=== PATIENT | male | born 1940 | race Two or more races ===

== ENCOUNTER → 2020-04-22 | Outpatient (CLI) | payer OTHER | END | disposition home or self-care (01) | LOC: LAB 16:28 | PROVIDERS: ATTEND Physician Assistant | DX: Z20.828 Contact with and (suspected) exposure to other viral communicable diseases (principal) | CPT/HCPCS: 87635 ==

== ENCOUNTER → 2020-06-17 | Outpatient (CLI) | payer OTHER | END | disposition home or self-care (01) | LOC: LAB 14:50 | PROVIDERS: ATTEND Nurse Practitioner Family | DX: Z20.828 Contact with and (suspected) exposure to other viral communicable diseases (principal) | CPT/HCPCS: C9803; U0003 ==

== ENCOUNTER 2020-08-12 10:40 | Emergency (ER) | payer MEDICARE, OTHER ==
[~2020-08-12] VITALS: Ht 172.7 cm; Wt 81.2 kg
[2020-08-12 10:53] VITALS: BP 137/62
== END 2020-08-12 12:13 | disposition home or self-care (01) ==
LOC: EEVIPCON 10:40 → ER 10:40
DX: U07.1 COVID-19 (principal); I25.10 Atherosclerotic heart disease of native coronary artery without angina pectoris; E11.9 Type 2 diabetes mellitus without complications; I10 Essential (primary) hypertension; Z98.61 Coronary angioplasty status
CPT/HCPCS: 71045

== ENCOUNTER → 2020-08-12 | Outpatient (CLI) | payer OTHER | END | disposition home or self-care (01) | LOC: LAB 09:32 | PROVIDERS: ATTEND Internal Medicine | DX: U07.1 COVID-19 (principal) | CPT/HCPCS: 36415; 87426; C9803; U0003 ==

== ENCOUNTER 2021-04-28 07:19 | Emergency (ER) | payer MEDICARE, OTHER ==
[~2021-04-28] VITALS: Ht 172.7 cm; Wt 83.5 kg
[2021-04-28 07:29] VITALS: BP 138/57
== END 2021-04-28 13:32 | disposition home or self-care (01) ==
LOC: ER 07:19 → EEVIPCON 07:19 → ER 13:31
DX: Z00.00 Encounter for general adult medical examination without abnormal findings (principal); I10 Essential (primary) hypertension; E11.9 Type 2 diabetes mellitus without complications; I25.10 Atherosclerotic heart disease of native coronary artery without angina pectoris; Z90.49 Acquired absence of other specified parts of digestive tract; Z20.822 Contact with and (suspected) exposure to COVID-19
CPT/HCPCS: 99283; C9803; U0003

== ENCOUNTER 2022-04-03 13:43 | Emergency (ER) | payer MEDICARE, OTHER | END 2022-04-03 18:47 | disposition left against medical advice (07) | LOC: ER 13:43 → EEVIPCON 13:43 → ER 18:47 | DX: Z02.79 Encounter for issue of other medical certificate (principal); Z53.21 Procedure and treatment not carried out due to patient leaving prior to being seen by health care provider; Z20.822 Contact with and (suspected) exposure to COVID-19 | CPT/HCPCS: C9803; U0003 ==

== ENCOUNTER → 2022-10-02 | Emergency (ER) | payer MEDICARE, OTHER | END | disposition left against medical advice (07) | LOC: ER 14:44 | DX: Z20.822 Contact with and (suspected) exposure to COVID-19 (principal); Z53.21 Procedure and treatment not carried out due to patient leaving prior to being seen by health care provider | CPT/HCPCS: 36415; 87426 ==

== ENCOUNTER 2022-11-09 07:11 | Emergency (ER) | payer MEDICARE, OTHER ==
[~2022-11-09] VITALS: Ht 172.7 cm; Wt 78.0 kg
[2022-11-09 07:30] VITALS: BP 123/62
== END 2022-11-09 15:05 | disposition home or self-care (01) ==
LOC: ER 07:11 → EEVIPCON 07:11 → ER 14:45
DX: Z11.52 Encounter for screening for COVID-19 (principal); I10 Essential (primary) hypertension; E11.9 Type 2 diabetes mellitus without complications; I25.10 Atherosclerotic heart disease of native coronary artery without angina pectoris; Z20.822 Contact with and (suspected) exposure to COVID-19; Z90.49 Acquired absence of other specified parts of digestive tract
CPT/HCPCS: 99283; C9803; U0003

== ENCOUNTER 2023-09-23 17:38 | Emergency (ER) | payer MEDICARE, OTHER ==
[~2023-09-23] VITALS: Ht 172.7 cm; Wt 82.0 kg
[2023-09-23 18:38] LABS: COVID19 ANTIGEN SOFIA FIA NEGATIVE (NEGATIVE)
[2023-09-23] MEDS ORDERED: AZITHROMYCIN 250 MG TAB PO ONE ×2 (19:00→19:03)
[2023-09-23 19:02] VITALS: BP 153/67; PULSE 80; RESP 20; O2SAT 95
[2023-09-23] MEDS ORDERED: AZIT500T66 PO (19:13)
[2023-09-23] MEDS ORDERED: ACETAMINOPHEN 500 MG TAB PO ONE (19:19)
== END 2023-09-23 19:30 | disposition home or self-care (01) ==
LOC: ER 17:38 → EEVIPCON 17:38 → ER 19:29
DX: J18.9 Pneumonia, unspecified organism (principal); E11.9 Type 2 diabetes mellitus without complications; I10 Essential (primary) hypertension; Z90.49 Acquired absence of other specified parts of digestive tract; Z20.822 Contact with and (suspected) exposure to COVID-19
CPT/HCPCS: 36415; 71046; 87426